=== PATIENT | female | born 1960 | race Caucasian/White ===

== ENCOUNTER 2018-03-24 11:19 | Emergency (ER) | payer MEDICARE ==
[2018-03-24] MEDS ORDERED: NS(*) 0.9% 500 ML BAG 500 ML IV ONE (11:51)
--- NOTE | 2018-03-24 11:58 | ER Report ---
History and Physical Time Seen By MD: 11:30 Hx. of Stated Complaint: HEAD SHAKING HPI/ROS CHIEF COMPLAINT: "Seizures" HISTORY OF PRESENT ILLNESS: Patient is a 57-year-old female who is brought to the emergency department with her . She is deaf and requires a commissioning agent. Leia Callaway was available and provided sign language interpretation. History was obtained from myself directly through her. Patient has been having increasing "facial seizures" over the past few days. I witnessed a video over the 's cell phone of where the patient is awake and alert and having facial twitching there were numerous episodes of such twitching without loss of consciousness. She also reports having a "high fever" but denies taking her temperature. Also reports upper respiratory symptoms including nasal congestion cough and sore throat. Her recently was treated for acute bronchitis. Patient denies actually losing consciousness during these "seizures". She denies any drug or alcohol use. Patient called neurology and she was instructed because of the "multiple seizures" to come to the emergency department for evaluation. I did speak with Dr. Zhong's district administrative assistant who was able to send us a current list. Her current medications include Lamictal 100 mg tablet daily, Synthroid 50 mg tablet daily and Lumigan 0.01% ophthalmic drops daily. There were no changes in patient's medications recently. REVIEW OF SYSTEMS: Constitutional: Subjective fever no chills Eyes: No discharge. ENT: Sore throat, runny nose Cardiovascular: No chest pain, no palpitations. Respiratory: Nonproductive cough no shortness of breath Gastrointestinal: No abdominal pain, no vomiting. Genitourinary: No hematuria. Musculoskeletal: No back pain. Skin: No rashes. Neurological: No headache. "Facial seizures" Allergies: Coded Allergies: No Known Allergies (Verified Allergy, Unknown, 03/24/18) Home Meds Reported Medications Bimatoprost (LUMIGAN) 2.5 Ml Drops, 2.5 ML OP QDAY 03/24/18 Levothyroxine Sodium (LEVOTHYROXINE SODIUM) 50 Mcg Tablet, 50 MCG PO QDAY, TAB 03/24/18 Lamotrigine (LAMOTRIGINE) 100 Mg Tablet, 100 MG PO QDAY 03/24/18 Past Medical/Surgical History Past medical history for deafness, history of "seizures" history of CVA in 2003 Constitutional Vital Sign - Last 24 Hours 03/24/18 03/24/18 03/24/18 03/24/18 11:19 11:28 11:28 11:30 Temp 98.3 Pulse 101 Resp 24 B/P (MAP) 133/51 (78) 123/62 (82) Pulse Ox 93 O2 Delivery Room Air 03/24/18 03/24/18 03/24/18 03/24/18 11:49 12:00 12:19 12:49 Pulse 97 89 93 Resp 28 27 30 B/P (MAP) 98/57 (71) Pulse Ox 93 92 92 O2 Delivery Room Air Room Air Room Air 03/24/18 03/24/18 03/24/18 03/24/18 13:00 13:05 13:30 13:35 Pulse 92 89 Resp 26 11 B/P (MAP) 110/67 (81) 125/60 (81) Pulse Ox 92 92 O2 Delivery Room Air Room Air Physical Exam General/Constitutional: Patient is awake, alert, nontoxic and in no acute respiratory distress. Head: Normocephalic and atraumatic. Eyes: Conjunctival clear, Pupils are equal and reactive to light. Extraocular muscles are intact and symmetrical. Sclera are clear and anicteric. Ears:External canals are clear. Tympanic membranes are clear with normal landmarks and light reflex. Patient is deaf Nares: No rhinorrhea or bleeding. Turbinates are pink and moist. Oropharyngeal: Mucous membranes are moist. There is no pharyngeal erythema or exudate. There are no palatal petechiae. Uvula is midline and symmetrical. Neck: Supple, no adenopathy. Cardiovascular: Heart is regular rate and rhythm without audible murmurs, rubs or gallops. Pulmonary: Lungs are clear to auscultation bilaterally. There are no wheezes, rales, or rhonchi. Chest rise is symmetrical Abdomen: Soft, nontender, no guarding or peritoneal signs. Extremities: No gross deformities, No peripheral cyanosis. Able to move all 4 extremities. Neuro: Alert and oriented X3, Cranial nerves 2 thru 12 are intact and symmetrical. Skin: No rashes, skin is warm dry and well perfused. Medical Decision Making Data Points Result Diagram: 03/24/18 1211 03/24/18 1211 Laboratory Hematology Test 03/24/18 12:05 03/24/18 12:11 Group A Streptococcus Screen Negative (NEGATIVE) Red Blood Count 5.00 M/uL (4.17-5.56) Mean Corpuscular Volume 94.4 fL (80.0-96.0) Mean Corpuscular Hemoglobin 32.1 pg (26.0-33.0) Mean Corpuscular Hemoglobin Concent 33.9 g/dL (32.0-36.0) Red Cell Distribution Width 13.5 % (11.5-14.5) Mean Platelet Volume 8.1 fL (7.2-11.1) Neutrophils (%) (Auto) 76.4 % (39.4-72.5) Lymphocytes (%) (Auto) 14.7 % (17.6-49.6) Monocytes (%) (Auto) 8.0 % (4.1-12.4) Eosinophils (%) (Auto) 0.4 % (0.4-6.7) Basophils (%) (Auto) 0.5 % (0.3-1.4) Nucleated RBC Relative Count (auto) 0.1 /100WBC Neutrophils # (Auto) 5.7 K/uL (2.0-7.4) Lymphocytes # (Auto) 1.1 K/uL (1.3-3.6) Monocytes # (Auto) 0.6 K/uL (0.3-1.0) Eosinophils # (Auto) 0.0 K/uL (0.0-0.5) Basophils # (Auto) 0.0 K/uL (0.0-0.1) Nucleated RBC Absolute Count (auto) 0.01 K/uL Sodium Level 136 mmol/L (137-145) Potassium Level 4.4 mmol/L (3.5-5.0) Chloride Level 100 mmol/L (98-107) Carbon Dioxide Level 27 mmol/L (22-31) Blood Urea Nitrogen 12 mg/dl (7-18) Creatinine 0.80 mg/dl (0.52-1.04) Glomerular Filtration Rate Calc > 60.0 Random Glucose 98 mg/dl (75-110) Calcium Level 9.1 mg/dl (8.4-10.2) Magnesium Level 2.2 mg/dl (1.7-2.2) Total Bilirubin 0.6 mg/dl (0.2-1.3) Aspartate Amino Transf (AST/SGOT) 29 U/L (0-35) Alanine Aminotransferase (ALT/SGPT) 38 U/L (0-56) Alkaline Phosphatase 98 U/L (0-126) Total Protein 7.4 g/dl (6.3-8.2) Albumin 4.4 g/dl (3.5-5.0) Chemistry Test 03/24/18 12:05 03/24/18 12:11 Group A Streptococcus Screen Negative (NEGATIVE) White Blood Count 7.4 k/uL (4.5-11.0) Red Blood Count 5.00 M/uL (4.17-5.56) Hemoglobin 16.0 g/dL (12.0-16.0) Hematocrit 47.2 % (34.0-47.0) Mean Corpuscular Volume 94.4 fL (80.0-96.0) Mean Corpuscular Hemoglobin 32.1 pg (26.0-33.0) Mean Corpuscular Hemoglobin Concent 33.9 g/dL (32.0-36.0) Red Cell Distribution Width 13.5 % (11.5-14.5) Platelet Count 210 K/uL (150-450) Mean Platelet Volume 8.1 fL (7.2-11.1) Neutrophils (%) (Auto) 76.4 % (39.4-72.5) Lymphocytes (%) (Auto) 14.7 % (17.6-49.6) Monocytes (%) (Auto) 8.0 % (4.1-12.4) Eosinophils (%) (Auto) 0.4 % (0.4-6.7) Basophils (%) (Auto) 0.5 % (0.3-1.4) Nucleated RBC Relative Count (auto) 0.1 /100WBC Neutrophils # (Auto) 5.7 K/uL (2.0-7.4) Lymphocytes # (Auto) 1.1 K/uL (1.3-3.6) Monocytes # (Auto) 0.6 K/uL (0.3-1.0) Eosinophils # (Auto) 0.0 K/uL (0.0-0.5) Basophils # (Auto) 0.0 K/uL (0.0-0.1) Nucleated RBC Absolute Count (auto) 0.01 K/uL Glomerular Filtration Rate Calc > 60.0 Calcium Level 9.1 mg/dl (8.4-10.2) Magnesium Level 2.2 mg/dl (1.7-2.2) Total Bilirubin 0.6 mg/dl (0.2-1.3) Aspartate Amino Transf (AST/SGOT) 29 U/L (0-35) Alanine Aminotransferase (ALT/SGPT) 38 U/L (0-56) Alkaline Phosphatase 98 U/L (0-126) Total Protein 7.4 g/dl (6.3-8.2) Albumin 4.4 g/dl (3.5-5.0) Toxicology Test 03/24/18 12:11 EKG/Imaging Imaging FACILITY: [facility] [place] PATIENT NAME: Haily Fermin : 1960 MR: [id number] V: [id number] EXAM DATE: ORDERING PHYSICIAN: ELLE LOPEZ TECHNOLOGIST: Location: [facility] Patient: Haily Fermin : 1960 Visit/Account:[id number] Date of Sevice: 03/24/2018 CT Head without contrast Indication: Fever. Comparison: None available Technique: Axial CT images were obtained through the brain from the skull base to the vertex without administration of IV contrast. Reformatted coronal and sagittal images were also obtained. One of the following dose optimization techniques was utilized in the performance of this exam: automated exposure control; adjustment of the mA and/or kV according to the patient's size; or use of an iterative reconstruction technique. Specific details can be referenced in the facility's radiology CT exam operational policy. Findings: No evidence of mass, mass effect, or midline shift. No acute intracranial hemorrhage or acute territorial infarction. No extra-axial fluid collection or hydrocephalus. Mild age-related cerebral atrophy. Mild periventricular white matter ischemic changes consistent small vessel disease. Tyler/white matter differentiation appears normal. Bony structures show no fractures or lesions. Mild rightward deviation nasal septum. The visualized paranasal sinuses and mastoid air cells are clear. IMPRESSION: 1. Mild senescent changes without acute abnormality. Report Dictated By: Sebastian Garner at 03/24/2018 12:57 PM Report E-Signed By: Sebastian Garner at 03/24/2018 1:01 PM WSN:[id number] FACILITY: [facility] [place] PATIENT NAME: Haily Fermin : 1960 MR: [id number] V: [id number] EXAM DATE: ORDERING PHYSICIAN: ELLE LOPEZ TECHNOLOGIST: Location: [facility] Patient: Haily Fermin : 1960 Visit/Account:[id number] Date of Sevice: 03/24/2018 2 VIEWS CHEST INDICATION: Fever. COMPARISON: None available FINDINGS: Cardiomediastinal silhouette and pulmonary vessels within normal limits. There is no focal infiltrate or lobar consolidation. There is no pneumothorax or pleural effusion. Tiny nodule seen in the lateral aspect of the right upper lobe. No other nodules. Upper abdomen is unremarkable. No acute bony abnormality. IMPRESSION: 1. No acute cardiopulmonary process. 2. Tiny nodule in the lateral right upper lobe. As there are no prior exams, suggest a follow-up 6 month chest x-ray to assess stability. Report Dictated By: Sebastian Garner at 03/24/2018 12:55 PM Report E-Signed By: Sebastian Garner at 03/24/2018 12:57 PM WSN:[id number] ED Course/Re-evaluation ED Course 03/24/2018 12:45:24 pm plan at this time will be CT scan of the head we'll perform a medical workup including EKG, chest x-ray troponin rapid strep looking for infectious causes. We will give 500 ML's saline IV. Disposition pending workup 03/24/2018 1:32:46 pm patient consistent with bronchitis we'll treat as appropriate with antibiotics. Patient also found to have an incidental pulmonary nodule which will require follow-up in 6 months. This was explained to the patient using Leia Callaway as the water systems designer. Questions or concerns at time of disposition. The patient was given a handwritten prescription for Zithromax and instructed on how to take that as well as to continue her current medications as directed. Decision to Disposition Date: Mar 24, 2018 Decision to Disposition Time: 13:17 Depart Departure Latest Vital Signs Vital Signs Date Time Temp Pulse Resp B/P (MAP) Pulse Ox O2 Delivery O2 Flow Rate FiO2 03/24/18 13:35 89 11 92 Room Air 03/24/18 13:30 125/60 (81) 03/24/18 11:28 98.3 Impression: Primary Impression: Pulmonary nodule Additional Impression: Bronchitis Condition: Improved Disposition: HOME OR SELF-CARE Patient Instructions: Acute Bronchitis (GEN), Pulmonary Nodules (DC) Additional Instructions: Follow up with Dr Zhong for any changes in your seizure medications. Follow up with your primary care provider within 6 months for a repeat chest xray to reevaluate for your pulmonary nodule Problem Qualifiers ELLE LOPEZ MD Mar 24, 2018 11:58
--- NOTE | 2018-03-24 12:10 | EKG ---
FACILITY: [facility] [place] PATIENT NAME: NEGRA ZARATE : [id number] MR: [id number] V: [id number] EXAM DATE: ORDERING PHYSICIAN: ELLE LOPEZ TECHNOLOGIST: Test Reason : tremor Blood Pressure : / mmHG Vent. Rate : 089 BPM Atrial Rate : 089 BPM P-R Int : 158 ms QRS Dur : 100 ms QT Int : 376 ms P-R-T Axes : 057 -36 033 degrees QTc Int : 457 ms Normal sinus rhythm Left axis deviation Incomplete right bundle branch block Abnormal ECG No previous ECGs available Confirmed by Bryon Carpio ([id number]) on 03/24/2018 4:55:08 PM Referred By: Confirmed By:Bryon Root
[2018-03-24 12:20] LABS: PLATELET COUNT, AUTOMATED 210 K/uL (150-450)
[2018-03-24] MEDS ORDERED: BIMA2.5D5 OP (13:01)
[2018-03-24] MEDS ORDERED: LAMO100T52 PO (13:01)
[2018-03-24] MEDS ORDERED: LEVO50TA86 PO (13:01)
--- NOTE | 2018-03-24 13:01 | RADIOLOGY IMAGING REPORT ---
FACILITY: [facility] PATIENT NAME: Haily Fermin : 1960 MR: [id number] V: [id number] EXAM DATE: ORDERING PHYSICIAN: ELLE LOPEZ TECHNOLOGIST: Location: [facility] [place] Patient: Haily Fermin : 1960 Visit/Account:[id number] Date of Sevice: 03/24/2018 2 VIEWS CHEST INDICATION: Fever. COMPARISON: None available FINDINGS: Cardiomediastinal silhouette and pulmonary vessels within normal limits. There is no focal infiltrate or lobar consolidation. There is no pneumothorax or pleural effusion. Tiny nodule seen in the lateral aspect of the right upper lobe. No other nodules. Upper abdomen is unremarkable. No acute bony abnormality. IMPRESSION: 1. No acute cardiopulmonary process. 2. Tiny nodule in the lateral right upper lobe. As there are no prior exams, suggest a follow-up 6 mo nth chest x-ray to assess stability. Report Dictated By: Sebastian Garner at 03/24/2018 12:55 PM Report E-Signed By: Sebastian Garner at 03/24/2018 12:57 PM WSN:[id number]
--- NOTE | 2018-03-24 13:05 | RADIOLOGY IMAGING REPORT ---
[facility] PATIENT NAME: Haily Fermin : 1960 MR: [id number] V: [id number] EXAM DATE: ORDERING PHYSICIAN: ELLE LOPEZ TECHNOLOGIST: Location: [facility] Patient: Haily Fermin : 1960 Visit/Account:[id number] Date of Sevice: 03/24/2018 CT Head without contrast Indication: Fever. Comparison: None available Technique: Axial CT images were obtained through the brain from the skull base to the vertex without administration of IV contrast. Reformatted coronal and sagittal images were also obtained. One of the following dose optimization techniques was utilized in the performance of this exam: autom ated exposure control; adjustment of the mA and/or kV according to the patient's size; or use of an i terative reconstruction technique. Specific details can be referenced in the facility's radiology CT exam operational policy. Findings: No evidence of mass, mass effect, or midline shift. No acute intracranial hemorrhage or acute territorial infarction. No extra-axial fluid collection or hydrocephalus. Mild age-related cerebral atrophy. Mild periventric ular white matter ischemic changes consistent small vessel disease. Tyler/white matter differentiation appears normal. Bony structures show no fractures or lesions. Mild rightward deviation nasal septum. The visualized paranasal sinuses and mastoid air cells are clear. IMPRESSION: 1. Mild senescent changes without acute abnormality. Report Dictated By: Sebastian Garner at 03/24/2018 12:57 PM Report E-Signed By: Sebastian Garner at 03/24/2018 1:01 PM WSN:[id number]
[2018-03-24] MEDS ORDERED: AZIT-1 PO (13:12)
[2018-03-24 13:30] VITALS: BP 125/60
== END 2018-03-24 13:45 | disposition home or self-care (01) ==
LOC: ER 11:25
DX: J40 Bronchitis, not specified as acute or chronic (principal); R91.1 Solitary pulmonary nodule; R09.81 Nasal congestion; R56.9 Unspecified convulsions; J02.9 Acute pharyngitis, unspecified; R05 Cough; H91.3 Deaf nonspeaking, not elsewhere classified; Z86.73 Personal history of transient ischemic attack (TIA), and cerebral infarction without residual deficits
CPT/HCPCS: 70450; 71046; 80175; 82040; 82247; 82310; 82374; 82435; 82565; 82947; 83735; 84075; 84132; 84155; 84295; 84450; 84460; 84520; 85025; 87081; 87880; 93005; 99284

== ENCOUNTER → 2018-10-16 | Outpatient (CLI) | payer MEDICARE ==
[~2018-10-16] MED LIST: AZIT-1 PO; BIMA2.5D5 OP; LAMO100T52 PO; LEVO50TA86 PO
--- NOTE | 2018-10-16 15:01 | RADIOLOGY IMAGING REPORT ---
FACILITY: [facility] PATIENT NAME: NEGRA ZARATE : [id number] MR: [id number] V: [id number] EXAM DATE: [id number] ORDERING PHYSICIAN: VALERIO PAPPAS TECHNOLOGIST: Shonda Mccurdy RDMS(ABD,OBGYN,BR),RVT PROCEDURE:US LEFT BREAST COMPARISON:Negative screening mammogram 03/17/18. INDICATIONS:lateral Left breast pain FINDINGS: Imaging of the lateral aspect of the Left breast was done to cover the area of pain shown by the patient. Ultrasound shows normal appearing fatty and fibroglandular tissue. No discreet solid or cystic abnormality. DIAGNOSTIC CATEGORY 1--NEGATIVE. RECOMMENDATIONS: CLINICAL CORRELATION WITH ATTENTION TO PATIENT'S LEFT BREAST PAIN. THE PATIENT IS DUE FOR SCREENING MAMMOGRAPHY IN 5 MONTHS TIME. IMPRESSION: BIRADS 1: Negative. Dictated by: John Stark on 10/16/2018 at 12:29 Transcribed by: CLAUDIA on 10/16/2018 at 14:14 Approved by: John Stark on 10/16/2018 at 15:00 [facility]
== END ==
LOC: US 01:49
PROVIDERS: ATTEND Family Medicine
DX: N64.4 Mastodynia (principal)